=== PATIENT | female | born 2000 ===

== ENCOUNTER 2024-12-12 02:27 | Emergency (ER) | payer SELFPAY ==
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
[2024-12-12 02:29] VITALS: BP 104/71; PULSE 83; RESP 16; TEMP 37.1; O2SAT 100; BMI 23.9
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
[2024-12-12 05:56] VITALS: BP 90/64; PULSE 62; RESP 16; TEMP 36.7; O2SAT 100
[2024-12-12 07:41] VITALS: BP 90/64; PULSE 62; RESP 16; TEMP 36.7; O2SAT 100
== END 2024-12-12 07:43 | disposition home or self-care (01) ==
PROVIDERS: Emergency Provider Emergency Medicine
DX: S00.93XA Contusion of unspecified part of head, initial encounter (principal); S20.211A Contusion of right front wall of thorax, initial encounter; Y04.1XXA Assault by human bite, initial encounter; Y04.0XXA Assault by unarmed brawl or fight, initial encounter; Y93.89 Activity, other specified; Y92.488 Other paved roadways as the place of occurrence of the external cause; Y99.8 Other external cause status
CPT/HCPCS: 70450; 71101; 99284

== ENCOUNTER → 2024-12-12 05:11 | Outpatient (BNV) | payer SELFPAY | PROVIDERS: Emergency Provider Emergency Medicine; Visit Provider Radiology Vascular & Interventional Radiology | DX: R51.9 Headache, unspecified (principal); R07.89 Other chest pain | CPT/HCPCS: 70450; 71101 ==